=== PATIENT | male | born 1985 | race African-American/Black ===

== ENCOUNTER 2023-01-05 00:12 | Emergency (ER) | payer BC ==
[~2023-01-05] VITALS: Ht 177.8 cm; Wt 95.3 kg
[2023-01-05 00:51] VITALS: BP 152/85
[2023-01-05] MEDS ORDERED: TDAP [DIPH/PERTUSSIS/TET] 0.5 ML VIAL IM ONE ×2 (01:01→01:30)
== END 2023-01-05 01:15 | disposition home or self-care (01) ==
LOC: ER 00:15
DX: S61.211A Laceration without foreign body of left index finger without damage to nail, initial encounter (principal); W26.8XXA Contact with other sharp object(s), not elsewhere classified, initial encounter; Y93.89 Activity, other specified; Y92.89 Other specified places as the place of occurrence of the external cause; Y99.8 Other external cause status
CPT/HCPCS: 90715